=== PATIENT | female | born 1965 | race Caucasian/White ===

== ENCOUNTER 2018-07-25 10:49 | Emergency (ER) | payer MEDICARE, OTHER ==
[~2018-07-25] VITALS: Ht 160 cm; Wt 52.6 kg
[~2018-07-25 10:49] MED LIST: AZIT250 PO; BACLOFEN; DIAZ2; HYDGUAL120 PO; HYDR1TAB94 PO; IBUP100S; IBUP800 PO; LORTAB 5-325 M1 EACH; PREG50 PO; [UNRECOGNIZED DRUG - REMARK]
[2018-07-25] MEDS ORDERED: GABA100 PO (11:47)
[2018-07-25 11:54] LABS: BASOPHILS ABSOLUTE AUTO 0.05 K/mm3 (0.00-0.23); BASOPHILS PERCENT AUTO 1 % (0-2); EOSINOPHILS ABSOLUTE AUTO 0.15 K/mm3 (0.00-0.68); EOSINOPHILS PERCENT AUTO 3 % (0-6); Hematocrit 36.3 % (33.0-51.0); Hemoglobin 11.8 g/dL (11.5-16.0); IMMATURE GRAN ABSOLUTE AUTO 0.01 K/mm3 (0.00-0.10); IMMATURE GRAN PERCENT AUTO 0 % (0-1); LYMPHOCYTES ABSOLUTE AUTO 1.73 K/mm3 (0.84-5.20); LYMPHOCYTES PERCENT AUTO 30 % (21-46); MONOCYTES ABSOLUTE AUTO 0.41 K/mm3 (0.16-1.47); MONOCYTES PERCENT AUTO 7 % (4-13); Mean Corpuscular HGB 28.2 pg (26.0-34.0); Mean Corpuscular HGB Conc 32.5 g/dL (31.5-36.5); Mean Corpuscular Volume 87 fL (80-100); Mean Platelet Volume 10.4 fL (9.1-12.4); NEUTROPHILS ABSOLUTE AUTO 3.48 K/mm3 (1.96-9.15); NEUTROPHILS PERCENT AUTO 60 % (41-73); Platelet Count 220 K/mm3 (150-400); RDW Coefficient Variation 12.7 % (11.7-14.2); RDW Standard Deviation 40.7 fL (35.1-46.3); Red Blood Cell Count 4.18 M/mm3 (3.80-5.20); White Blood Cell Count 5.83 K/mm3 (4.00-11.30)
[2018-07-25 11:55] LABS: Alanine Aminotransfer (ALT/SGP 18 U/L (12-78); Albumin, Blood 3.7 g/dL (3.4-5.0); Alk Phos 56 U/L (50-136); Anion Gap 6 mmol/L (6-16); Aspartate Aminotrans (AST/SGOT 22 U/L (12-37); Bilirubin, Total 0.3 mg/dL (0.1-1.0); Blood Urea Nitrogen 13 mg/dL (8-24); Bun/Creatinine Ratio 21.8 (12.0-20.0); CO2, Blood 28 mmol/L (21-32); Chloride, Blood 103 mmol/L (98-108); Globulin, Blood 3.7 g/dL (2.2-4.0); Glomerular Filtration Rate >60 (60-); Glucose, Blood 90 mg/dL (70-99); Potassium, Blood 4.1 mmol/L (3.5-5.5); Sodium, Blood 137 mmol/L (136-145); Total Protein, Blood 7.4 g/dL (6.4-8.2); Troponin I <0.015 ng/mL (0.000-0.040)
== END 2018-07-25 14:20 | disposition home or self-care (01) ==
LOC: ER 10:49
PROVIDERS: Emergency Medicine
DX: R00.2 Palpitations (principal); Z87.891 Personal history of nicotine dependence
CPT/HCPCS: 36415; 71046; 80053; 84484; 85025; 93005; 93010

== ENCOUNTER → 2020-07-08 | Outpatient (CLI) | payer MEDICARE, OTHER ==
[~2020-07-08] MED LIST changes: +GABA100 PO
== END ==
LOC: LAB SHORT 13:47 → PLD 13:47
DX: S90.852A Superficial foreign body, left foot, initial encounter (principal)
CPT/HCPCS: 88305

== ENCOUNTER 2023-10-18 05:16 | Inpatient (IN) | payer MEDICARE, OTHER ==
[~2023-10-18] VITALS: Ht 160 cm; Wt 50.9 kg
[2023-10-18 06:30] LABS: Influenza A, PCR NEGATIVE (NEGATIVE); Influenza B, PCR NEGATIVE (NEGATIVE); Resp Syncytial Virus, PCR NEGATIVE (NEGATIVE)
[2023-10-18 06:47] LABS: BASOPHILS ABSOLUTE AUTO 0.01 K/mm3 (0.00-0.23); BASOPHILS PERCENT AUTO 0 % (0-2); EOSINOPHILS PERCENT AUTO 0 % (0-6); Hematocrit 30.1 % (33.0-51.0); Hemoglobin 10.6 g/dL (11.5-16.0); IMMATURE GRAN ABSOLUTE AUTO 0.03 K/mm3 (0.00-0.10); IMMATURE GRAN PERCENT AUTO 0 % (0-1); LYMPHOCYTES ABSOLUTE AUTO 0.75 K/mm3 (0.84-5.20); LYMPHOCYTES PERCENT AUTO 8 % (21-46); MONOCYTES ABSOLUTE AUTO 0.74 K/mm3 (0.16-1.47); MONOCYTES PERCENT AUTO 7 % (4-13); Mean Corpuscular HGB Conc 35.2 g/dL (31.5-36.5); Mean Corpuscular Volume 79 fL (80-100); Mean Platelet Volume 10.3 fL (9.1-12.4); NEUTROPHILS ABSOLUTE AUTO 8.44 K/mm3 (1.96-9.15); NEUTROPHILS PERCENT AUTO 85 % (41-73); Platelet Count 159 K/mm3 (150-400); RDW Coefficient Variation 11.9 % (11.7-14.2); RDW Standard Deviation 34.3 fL (35.1-46.3); Red Blood Cell Count 3.79 M/mm3 (3.80-5.20); White Blood Cell Count 9.97 K/mm3 (4.00-11.30)
[2023-10-18 07:02] LABS: Calcium, Blood 7.4 mg/dL (8.5-10.1); Creatinine, Blood 0.21 mg/dL (0.40-1.00); Magnesium, Blood 1.6 mg/dL (1.6-2.4); Potassium, Blood 3.5 mmol/L (3.5-5.5)
[2023-10-18 07:50] LABS: SARS-Cov-2 (COVID-19) PCR, MMC POSITIVE (NEGATIVE)
[2023-10-18] MEDS ORDERED: ONDA4ODT MM (09:15)
[2023-10-18] MEDS ORDERED: Ibuprofen600 MG PO (09:15)
[2023-10-18 10:48] LABS: Bun/Creatinine Ratio 14.5 (12.0-20.0); Calcium, Blood 7.6 mg/dL (8.5-10.1); Creatinine, Blood 0.28 mg/dL (0.40-1.00); Potassium, Blood 3.2 mmol/L (3.5-5.5)
[2023-10-18 12:47] LABS: Bun/Creatinine Ratio 11.7 (12.0-20.0); Creatinine, Blood 0.34 mg/dL (0.40-1.00); Potassium, Blood 3.3 mmol/L (3.5-5.5)
[2023-10-18] MEDS ORDERED: ONDA4 PO (13:41)
[2023-10-18] MEDS ORDERED: GABA300 PO (13:42)
[2023-10-18] MEDS ORDERED: HYDR1TAB94 PO (13:43)
[2023-10-18] MEDS ORDERED: BACLOFEN PUMP (13:47)
[2023-10-18 14:12] VITALS: BP 92/53
[2023-10-18 15:38] LABS: Calcium, Blood 8.4 mg/dL (8.5-10.1); Creatinine, Blood 0.34 mg/dL (0.40-1.00); Potassium, Blood 3.3 mmol/L (3.5-5.5)
[2023-10-18 15:54] VITALS: BP 100/70
[2023-10-18 20:13] LABS: Bun/Creatinine Ratio 7.8 (12.0-20.0); Calcium, Blood 8.4 mg/dL (8.5-10.1); Creatinine, Blood 0.39 mg/dL (0.40-1.00); Potassium, Blood 3.3 mmol/L (3.5-5.5)
[2023-10-18 20:52] VITALS: BP 98/63
[2023-10-19 03:00] VITALS: BP 107/74
[2023-10-19 05:12] LABS: BASOPHILS ABSOLUTE AUTO 0.01 K/mm3 (0.00-0.23); BASOPHILS PERCENT AUTO 0 % (0-2); EOSINOPHILS ABSOLUTE AUTO 0.03 K/mm3 (0.00-0.68); EOSINOPHILS PERCENT AUTO 1 % (0-6); Hematocrit 31.4 % (33.0-51.0); Hemoglobin 10.8 g/dL (11.5-16.0); IMMATURE GRAN PERCENT AUTO 0 % (0-1); LYMPHOCYTES PERCENT AUTO 35 % (21-46); MONOCYTES ABSOLUTE AUTO 0.67 K/mm3 (0.16-1.47); MONOCYTES PERCENT AUTO 14 % (4-13); Mean Corpuscular HGB 27.9 pg (26.0-34.0); Mean Corpuscular HGB Conc 34.4 g/dL (31.5-36.5); Mean Corpuscular Volume 81 fL (80-100); NEUTROPHILS ABSOLUTE AUTO 2.47 K/mm3 (1.96-9.15); NEUTROPHILS PERCENT AUTO 51 % (41-73); Platelet Count 162 K/mm3 (150-400); RDW Coefficient Variation 12.2 % (11.7-14.2); RDW Standard Deviation 35.9 fL (35.1-46.3); Red Blood Cell Count 3.87 M/mm3 (3.80-5.20); White Blood Cell Count 4.88 K/mm3 (4.00-11.30)
--- NOTE | 2023-10-19 05:22 | NUR ---
SHIFT SUMMARY 58 YR F ADMITTED ON 10/18/23 FOR HYPONATREMIA. FULL CODE. NO ACUTE CHANGES THIS SHIFT. PT APPEARS TO HAVE RESTED WELL AND SLEPT FOR MOST OF THIS SHIFT. NO MEDICAL CHANGES TO REPORT. SHE IS PLEASANT AND COOPERATIVE WITH CARE. SHE STATES THIS IS HER FIRST TIME GETTING COVID AND THAT SHE FEELS PHYSICALLY TERRIBLE. SHE WAS MEDICATED W/ NORCO PER EMAR FOR PAIN AT APPROX 2200 AND HAS NOT C/O PAIN OR ASKED FOR PAIN MEDS SINCE THEN.
[2023-10-19 05:47] LABS: Albumin, Blood 2.9 g/dL (3.4-5.0); Bilirubin, Total 0.2 mg/dL (0.1-1.0); Bun/Creatinine Ratio 7.8 (12.0-20.0); Creatinine, Blood 0.39 mg/dL (0.40-1.00); Globulin, Blood 2.9 g/dL (2.2-4.0); Phosphorus, Blood 3.7 mg/dL (2.5-4.9); Potassium, Blood 3.7 mmol/L (3.5-5.5); Total Protein, Blood 5.8 g/dL (6.4-8.2)
[2023-10-19 07:15] VITALS: BP 102/65
--- NOTE | 2023-10-19 14:35 | NUR ---
PATIENT UP TO SHOWER WITHOUT ASSIST. RETURNS TO BED. IV FLUIDS ARE RESTARTD THROUGH IV. PATIENT EATS MINIMAL AMOUNT OF LUNCH. EXPRESSING THAT SHE DOES NOT FEEL HUNGRY. SPOUSE IN TO VISIT AND PATIENT HAS PLEASANT AFFECT AND APPEARS TO ENJOYS INTERACTION WITH HER FAMILY. PATIENT EXPRESSES SHE IS VERY TIRED THROUGHOUT DAY AND TAKES MULTIPLE REST BREAKS. SHE REMAINS ON ROOM AIR. LUNGS ARE DIM THROUGHOUT. SLIGHT COARSE SOUNDS IN BASES OF LUNGS THAT CLEAR WITH COUGH. VITAL SIGNS ARE STABLE. NO FEVER.
[2023-10-19 15:53] VITALS: BP 93/54
[2023-10-19] MEDS ORDERED: FAMO20 PO (19:22)
[2023-10-20 02:31] VITALS: BP 93/52
--- NOTE | 2023-10-20 04:10 | NUR ---
SHIFT SUMMARY ADMITTED FOR HYPONATREMIA - NOW RESOLVED. FULL CODE. ENHANCED PRECAUTIONS FOR COVID+. SHE WILL DC HOME TODAY WITH FAMILY. SHE IS INDEPENDENT IN ROOM, A&O X4, ON RA. CARDIAC DIET. HX OF HEMIPARESIS, CONTRACTURED LEFT HAND. NO NEW CONCERNS.
[2023-10-20 07:18] VITALS: BP 99/65
--- NOTE | 2023-10-20 09:52 | NUR ---
DISCHARGE DISCHARGE HOME. ORDERS VERIFIED BY LAILA HAQ. VSS. IV REMOVED RIGTH AC AND PRESSURE DRESSING APPLIED. PT HERE TO TAKE HER HOME. CONTINUE POC.
== END 2023-10-20 09:44 | disposition home or self-care (01) | DRG 640 ==
LOC: ER 05:16 → MEDS 12:50
PROVIDERS: Emergency Medicine; ADMIT Family Medicine
DX: E87.1 Hypo-osmolality and hyponatremia (principal); U07.1 COVID-19; E87.6 Hypokalemia; E83.39 Other disorders of phosphorus metabolism; G56.00 Carpal tunnel syndrome, unspecified upper limb; E86.0 Dehydration; Z98.890 Other specified postprocedural states; Z87.891 Personal history of nicotine dependence; Z90.49 Acquired absence of other specified parts of digestive tract; Z90.89 Acquired absence of other organs; Z88.2 Allergy status to sulfonamides; Z88.8 Allergy status to other drugs, medicaments and biological substances; Z79.891 Long term (current) use of opiate analgesic; Z79.899 Other long term (current) drug therapy; Z86.69 Personal history of other diseases of the nervous system and sense organs
CPT/HCPCS: 0241U; 36415; 71045; 80048; 80053; 83735; 84100; 85025; 93005; 93010; 96361; 96365; 96366; 96375; 97110; 97112-CQ; 97161; 99285-25; A9270; J0780; J1200; J1650; J1885; J2405; J3475; J7030; J7060

== ENCOUNTER → 2023-11-05 | Outpatient (CLI) | payer MEDICARE, OTHER ==
[~2023-11-05] MED LIST changes: +BACLOFEN PUMP; +FAMO20 PO; +GABA300 PO; +Ibuprofen600 MG PO; +ONDA4 PO; +ONDA4ODT MM
[2023-11-05 13:24] LABS: BASOPHILS ABSOLUTE AUTO 0.04 K/mm3 (0.00-0.23); BASOPHILS PERCENT AUTO 0 % (0-2); EOSINOPHILS ABSOLUTE AUTO 0.07 K/mm3 (0.00-0.68); EOSINOPHILS PERCENT AUTO 1 % (0-6); Hematocrit 37.8 % (33.0-51.0); Hemoglobin 12.8 g/dL (11.5-16.0); IMMATURE GRAN ABSOLUTE AUTO 0.03 K/mm3 (0.00-0.10); IMMATURE GRAN PERCENT AUTO 0 % (0-1); LYMPHOCYTES ABSOLUTE AUTO 1.04 K/mm3 (0.84-5.20); LYMPHOCYTES PERCENT AUTO 12 % (21-46); MONOCYTES ABSOLUTE AUTO 0.55 K/mm3 (0.16-1.47); MONOCYTES PERCENT AUTO 6 % (4-13); Mean Corpuscular HGB Conc 33.9 g/dL (31.5-36.5); Mean Corpuscular Volume 86 fL (80-100); Mean Platelet Volume 9.7 fL (9.1-12.4); NEUTROPHILS ABSOLUTE AUTO 7.26 K/mm3 (1.96-9.15); NEUTROPHILS PERCENT AUTO 81 % (41-73); Platelet Count 266 K/mm3 (150-400); RDW Coefficient Variation 13.3 % (11.7-14.2); RDW Standard Deviation 41.8 fL (35.1-46.3); Red Blood Cell Count 4.41 M/mm3 (3.80-5.20); White Blood Cell Count 8.99 K/mm3 (4.00-11.30)
[2023-11-05 13:29] LABS: Bun/Creatinine Ratio 16.1 (12.0-20.0); Calcium, Blood 9.7 mg/dL (8.5-10.1); Creatinine, Blood 0.56 mg/dL (0.40-1.00); Potassium, Blood 4.2 mmol/L (3.5-5.5)
== END | disposition home or self-care (01) ==
LOC: LAB SHORT 13:19
PROVIDERS: Physician Assistant Surgical
DX: R53.83 Other fatigue (principal)
CPT/HCPCS: 80048; 85025

== ENCOUNTER → 2025-01-08 | Outpatient (CLI) | payer MEDICARE ==
[2025-01-12 10:18] LABS: HPV HIGH RISK BY TMA Not Detected; HPV SOURCE Cervical
== END | disposition home or self-care (01) ==
LOC: LAB SHORT 12:32 → LAB 12:32
PROVIDERS: Family Medicine
DX: Z01.419 Encounter for gynecological examination (general) (routine) without abnormal findings (principal)
CPT/HCPCS: 87624; G0123